=== PATIENT | female | born 1985 | race Caucasian/White ===

== ENCOUNTER 2017-01-23 14:07 | Emergency (ER) | payer MEDICAID ==
--- NOTE | 2017-01-23 14:15 | EDPHY ---
H & P HPI/ROS: HPI CHIEF COMPLAINT: Sore throat, white spots. HISTORY OF PRESENT ILLNESS: This patient very pleasant 31-year-old female, denies any significant medical history she is allergic to penicillins, she presents emergency room with 1 day of mild sore throat and white spots on her tonsillar bed. Denies trouble swallowing. Denies fever, denies cough. No recent illness. Past Medical History: Denies significant medical history Past Surgical History: Denies significant surgical Social History: Denies daily use of drugs alcohol tobacco products. Family History: Noncontributory ROS REVIEW OF SYSTEMS: A comprehensive 10 point review of systems is otherwise negative aside from elements mentioned in the history of present illness. Exam Constitutional appears well nontoxic triage nursing summary reviewed, vital signs reviewed, awake/alert. Eyes normal conjunctivae and sclera, EOMI, PERRLA. HENT posterior pharynx: No significant erythema, tonsillar bed does not appear swollen, there are some white spots seen on the right tonsillar bed non seen left tonsillar bed. Uvula midline. No Vance's. No drooling. No trismus. moist mucus membranes, no epistaxis, neck supple/ no meningismus, no raccoon eyes. Respiratory clear to auscultation bilaterally, normal breath sounds, no respiratory distress, no wheezing. Cardiovascular rate normal, regular rhythm, no murmur, no edema, distal pulses normal. Gastrointestinal soft, non-tender, no rebound, no guarding, normal bowel sounds, no distension, no pulsatile mass. Genitourinary no CVA tenderness. Musculoskeletal no midline vertebral tenderness, full range of motion, no calf swelling, no tenderness of extremities, no meningismus, good pulses, neurovascularly intact. Skin pink, warm, & dry, no rash, skin atraumatic. Neurologic awake, alert and oriented x 3, AAOx3, moves all 4 extremities equally, motor intact, sensory intact, CN II-XII intact, normal cerebellar, normal vision, normal speech. Psychiatric normal mood/affect. Heme/Lymph/Immune no lymphadenopathy. Differential Diagnosis: Includes but is not limited to in a particular, tonsillar bed stones, viral pharyngitis, strep pharyngitis Medical Decision Making: Plan for this patient rapid strep test. Re-evaluation: Rapid strep is negative. Do feel this patient has tonsil stones. Recommend gargling warm salty water. Follow up with ENT. Source: Patient - Medical/Surgical History Other PMH: DEPRESSION AND ANXIETY - Social History Smoking Status: Never smoked Constitutional: Initial Vital Signs Temperature (C) 37 C 01/23/17 14:14 Heart Rate 108 H 01/23/17 14:14 Respiratory Rate 16 01/23/17 14:14 Blood Pressure 129/84 H 01/23/17 14:14 O2 Sat (%) 97 01/23/17 14:14 O2 Delivery Mode Room Air Allergies/Adverse Reactions: Penicillins Allergy (Severe, Verified 01/23/17 14:13) SWELLING Home Medications: Medication Instructions Recorded NK [No Known Home Meds] 01/23/17 Medical Decision Making - Data Points Laboratory Results: 01/23/17 01/23/17 Unknown 14:20 Group A Strep Screen NEGATIVE (NEGATIVE) Group A Strep DNA Pending Departure - Departure Disposition: Home, Routine, Self-Care Clinical Impression: Calculus, tonsil Condition: Good Instructions: Tonsillitis (ED) Additional Instructions: 1. Please gargal warm salt water. 2. Please follow up with ENT. Referrals: [facility],. [Primary Care Provider] - As per Instructions Janny Hutchinson MD [Medical Doctor] - As per Instructions
[2017-01-23 14:16] VITALS: BP 129/84; PULSE 108; RESP 16; TEMP 98.6; O2SAT 97
== END 2017-01-23 14:50 | disposition home or self-care (01) ==
LOC: CED 14:07
DX: J35.8 Other chronic diseases of tonsils and adenoids (principal)
CPT/HCPCS: 87880-PO

== ENCOUNTER 2017-02-06 14:07 | Emergency (ER) | payer MEDICAID ==
[2017-02-06 14:13] VITALS: BP 133/101; PULSE 62; RESP 16; TEMP 99.1; O2SAT 97
--- NOTE | 2017-02-06 14:28 | EDPHY ---
H & P Stated Complaint: skin rash on sides of neck Time Seen by Provider: 02/06/17 14:18 HPI/ROS: CHIEF COMPLAINT: Rash HISTORY OF PRESENT ILLNESS: The patient is a 31-year-old female who comes to the emergency department complaining of rash to her neck and shoulders bilaterally. She states that she had wooden gauges in her ears that were becoming infected. She began using tea tree oil to treat the infection. Her ears have improved but over the last week she has developed irritation and itching to her neck bilaterally below her ear lobe and top of her shoulders. No fevers. No pain. REVIEW OF SYSTEMS: Constitutional: denies: chills, fever, recent illness, recent injury EENTM: denies: blurred vision, double vision, nose congestion Respiratory: denies: cough, shortness of breath Cardiac: denies: chest pain, irregular heart rate, lightheadedness, palpitations Gastrointestinal/Abdominal: denies: abdominal pain, diarrhea, nausea, vomiting, blood streaked stools Genitourinary: denies: dysuria, frequency, hematuria, pain Musculoskeletal: denies: joint pain, muscle pain Skin: See HPI Neurological: denies: headache, numbness, paresthesia, tingling, dizziness, weakness Hematologic/Lymphatic: denies: blood clots, easy bleeding, easy bruising Immunologic/allergic: denies: HIV/AIDS, transplant EXAM: GENERAL: Well-appearing, well-nourished and in no acute distress. HEAD: Atraumatic, normocephalic. EYES: Pupils equal round and reactive to light, extraocular movements intact, sclera anicteric, conjunctiva are normal. ENT: TMs normal, nares patent, oropharynx clear without exudates. Moist mucous membranes. NECK: Normal range of motion, supple without lymphadenopathy or JVD. LUNGS: Breath sounds clear to auscultation bilaterally and equal. No wheezes rales or rhonchi. HEART: Regular rate and rhythm without murmurs, rubs or gallops. ABDOMEN: Soft, nontender, normoactive bowel sounds. No guarding, no rebound. No masses appreciated. BACK: No CVA tenderness, no spinal tenderness, step-offs or deformities EXTREMITIES: Normal range of motion, no pitting or edema. No clubbing or cyanosis. NEUROLOGICAL: Cranial nerves II through XII grossly intact. Normal speech, normal gait. 5/5 strength, normal movement in all extremities, normal sensation PSYCH: Normal mood, normal affect. SKIN: Contiguous erythematous burn type rash to lateral neck and top of shoulders bilaterally. No urticaria. No blanching. No weeping. Source: Patient Exam Limitations: No limitations - Personal History LMP (Females 10-55): Extended Cycle BCP/Inj Current Tetanus/Diphtheria Vaccine: Yes - Medical/Surgical History Hx Asthma: No Hx Chronic Respiratory Disease: No Hx Diabetes: No Hx Cardiac Disease: No Hx Renal Disease: No Hx Cirrhosis: No Hx Alcoholism: No Other PMH: DEPRESSION AND ANXIETY - Family History Significant Family History: No pertinent family hx - Social History Alcohol Use: Sober Drug Use: None Constitutional: Initial Vital Signs Temperature (C) 37.3 C 02/06/17 14:10 Heart Rate 62 02/06/17 14:10 Respiratory Rate 16 02/06/17 14:10 Blood Pressure 133/101 H 02/06/17 14:10 O2 Sat (%) 97 02/06/17 14:10 O2 Delivery Mode Room Air Allergies/Adverse Reactions: Penicillins Allergy (Severe, Verified 02/06/17 14:13) SWELLING Home Medications: Medication Instructions Recorded Triamcinolone 0.025% 1 mahnaz TP TID #1 crtube 02/06/17 [Triamcinolone 0.025% cream (*)] Medical Decision Making ED Course/Re-evaluation: The patient has what appears to be a contact dermatitis to her eye skin bilaterally. I will start her on a steroid cream. I do not think that this represents an allergic reaction. She will follow up with her [facility] doctor [facility]. Also discussed indications for returning here. Differential Diagnosis: Partial list of the Differential diagnosis considered include but were not limited to; contact dermatitis, allergic reaction, urticaria and although unlikely based on the history and physical exam, I also considered burn, cellulitis, abscess. I discussed these differential diagnoses and the plan with the patient as well as the usual and expected course. The patient understands that the diagnosis is provisional and that in medicine we are not always correct and that further workup is often warranted. Usual and customary warnings were given. All of the patient's questions were answered. The patient was instructed to return to the emergency department should the symptoms at all worsen or return, otherwise to followup with the physician as we discussed. Departure - Departure Disposition: Home, Routine, Self-Care Clinical Impression: Acute dermatitis Condition: Good Instructions: Dermatitis (ED) Referrals: [facility],. [Primary Care Provider] - 2-3 days without fail Prescriptions: Triamcinolone 0.025% [Triamcinolone 0.025% cream (*)] 1 mahnaz TP TID #1 crtube
== END 2017-02-06 14:32 | disposition home or self-care (01) ==
LOC: CED 14:07
DX: L30.9 Dermatitis, unspecified (principal)

== ENCOUNTER 2017-03-16 11:59 | Emergency (ER) | payer MEDICAID ==
--- NOTE | 2017-03-16 12:05 | EDPHY ---
H & P - Medical/Surgical History Hx Asthma: No Hx Chronic Respiratory Disease: No Hx Diabetes: No Hx Cardiac Disease: No Hx Renal Disease: No Hx Cirrhosis: No Hx Alcoholism: No Other PMH: DEPRESSION AND ANXIETY - Social History Smoking Status: Never smoked Constitutional: Initial Vital Signs Temperature (C) 36.8 C 03/16/17 12:09 Heart Rate 78 03/16/17 12:09 Respiratory Rate 18 03/16/17 12:09 Blood Pressure 158/96 H 03/16/17 12:09 O2 Sat (%) 95 03/16/17 12:09 O2 Delivery Mode Room Air Allergies/Adverse Reactions: Penicillins Allergy (Severe, Verified 02/06/17 14:13) SWELLING Home Medications: Medication Instructions Recorded Triamcinolone 0.025% 1 mahnaz TP TID #1 crtube 02/06/17 [Triamcinolone 0.025% cream (*)] Medical Decision Making ED Course/Re-evaluation: CHIEF COMPLAINT: Mass on left gluteus HISTORY OF PRESENT ILLNESS: The patient is a 32 y/o female who complains of a a mass on her left gluteus for 2.5 weeks. She notes she had hemorrhoids several weeks ago and was using her boyfriends hemorrhoid cream. When she stopped using that cream she noticed her current symptoms. She was seen in an urgent care 2 weeks ago, where she was diagnosed with hemorrhoids. However, the cream she received has not improved her symptoms. Denies constipation, diarrhea, fever, urinary complaints, anticoagulant use, or other pertinent symptoms. REVIEW OF SYSTEMS: A 10 point review of systems was performed and is negative with the exception of the elements mentioned in the history of present illness. PHYSICAL EXAM: HR, BP, O2 Sat, RR. Temp noted General Appearance: Alert, well hydrated, appropriate, and non-toxic appearing. Head: Atraumatic without scalp tenderness or obvious injury Eyes: Pupils equal, round, reactive to light and accommodation, EOMI, no trauma , no injection. Ears: Clear bilaterally, no perforation, normal landmarks Nose: Atraumatic, no rhinorrhea, clear. Throat: Mucus membranes moist. Neck: Supple, non-tender, no lymphadenopathy. Respiratory: No retractions, no distress, no wheezes, and no accessory muscle use. Lungs are clear to auscultation bilaterally. Cardiovascular: Regular rate and rhythm, no murmurs, rubs, or gallops. Good capillary refill all extremities. Gastrointestinal: Abdomen is soft, non-tender, non-distended, no masses, no rebound, no guarding, no peritoneal signs. Rectal: Left golf ball sized mass. No hemorrhoids visible. Musculoskeletal: Normal active ROM of all extremities, atraumatic. Neurological: Alert, appropriate, and interactive. Non-focal neuro. Skin:No rashes, good turgor, no nodules on palpation. PAST MEDICAL HISTORY: Hemorrhoids, anxiety, depression PAST SURGICAL HISTORY: Denies SOCIAL HISTORY: Single, lives in [place], non-smoker DIFFERENTIAL DIAGNOSIS: The differential diagnosis for the patient's perirectal lesion included but was not limited to internal hemorrhoid, external hemorrhoid, perirectal STI, perirectal abscess, cutaneous abscess, Crohn's disease. MEDICAL DECISION MAKING: The patient is a 32 y/o female who presents with a golf ball sized left mass, which is consistent with a perirectal abscess. Plan on consulting with the general surgeon for incision and drainage. IV antibiotics administered in advance of her I&D. 1258: Consulted with Dr. Antonio Hodgson, general surgeon, regarding I&D. He accepts this patient for outpatient surgery. Reassessed patient and discussed her surgery with Dr. Hodgson. Patient is comfortable with this plan. - Data Points Laboratory Results: Laboratory Results 03/16/17 12:40 03/16/17 12:40 03/16/17 03/16/17 03/16/17 12:40 12:40 12:40 WBC 7.50 10^3/uL 10^3/uL (3.80-9.50) RBC 5.10 10^6/uL 10^6/uL (4.18-5.33) Hgb 14.3 g/dL g/dL (12.6-16.3) Hct 42.2 % % (38.0-47.0) MCV 82.7 fL fL (81.5-99.8) MCH 28.0 pg pg (27.9-34.1) MCHC 33.9 g/dL g/dL (32.4-36.7) RDW 12.3 % % (11.5-15.2) Plt Count 281 10^3/uL 10^3/uL (150-400) MPV 8.9 fL fL (8.7-11.7) Neut % (Auto) 59.0 % % (39.3-74.2) Lymph % (Auto) 32.1 % % (15.0-45.0) [place] % (Auto) 6.3 % % (4.5-13.0) Eos % (Auto) 1.6 % % (0.6-7.6) Baso % (Auto) 0.7 % % (0.3-1.7) Nucleat RBC Rel Count 0.0 % % (0.0-0.2) Absolute Neuts (auto) 4.43 10^3/uL 10^3/uL (1.70-6.50) Absolute Lymphs (auto) 2.41 10^3/uL 10^3/uL (1.00-3.00) Absolute Monos (auto) 0.47 10^3/uL 10^3/uL (0.30-0.80) Absolute Eos (auto) 0.12 10^3/uL 10^3/uL (0.03-0.40) Absolute Basos (auto) 0.05 10^3/uL 10^3/uL (0.02-0.10) Absolute Nucleated RBC 0.00 10^3/uL 10^3/uL (0-0.01) Immature Gran % 0.3 % % (0.0-1.1) Immature Gran # 0.02 10^3/uL 10^3/uL (0.00-0.10) Sodium 144 mEq/L mEq/L (134-144) Potassium 4.4 mEq/L mEq/L (3.5-5.2) Chloride 106 mEq/L mEq/L (97-110) Carbon Dioxide 22 mEq/l mEq/l (22-31) Anion Gap 16 mEq/L mEq/L (8-16) BUN 6 mg/dL L mg/dL (7-23) Creatinine 0.6 mg/dL mg/dL (0.6-1.0) Estimated GFR > 60 Glucose 88 mg/dL mg/dL (70-100) Calcium 9.8 mg/dL mg/dL (8.5-10.4) Beta HCG, Qual NEGATIVE Medications Given: Discontinued Medications Ertapenem 1 gm/ Sodium (Chloride) 100 mls @ 200 mls/hr IV EDNOW ONE PRN Reason: Protocol Stop: 03/16/17 13:01 Last Admin: 03/16/17 13:01 Dose: 100 mls Departure - Departure Disposition: Home, Routine, Self-Care Clinical Impression: Perirectal abscess Condition: Good Instructions: Abscess (ED), Rectal Abscess (ED) Additional Instructions: 1. Immediately go to Dr. Antonio Hodgson', general surgeon, office for drainage of your abscess Referrals: Antonio Hodgson MD [Medical Doctor] - As per Instructions Report Scribed for: Je Calderón Report Scribed by: Malena Galindo Date of Report: 03/16/17 Time of Report: 12:05
[2017-03-16 12:13] VITALS: RESP 18; TEMP 98.2
[2017-03-16] MEDS ORDERED: ERTAPENEM 1 GM in NS 100 ML IV ONE (12:32)
[2017-03-16 12:56] LABS: % IMMATURE GRANULYOCYTES 0.3 % (0.0-1.1); ABSOLUTE IMMATURE GRANULOCYTES 0.02 10^3/uL (0.00-0.10); ADD DIFF? NO; ADD MORPH? NO; ADD SCAN? NO; ATYPICAL LYMPHOCYTE FLAG 0 (0-99); FRAGMENT RBC FLAG 0 (0-99); HEMATOCRIT 42.2 % (38.0-47.0); HEMOGLOBIN 14.3 g/dL (12.6-16.3); LEFT SHIFT FLG 0 (0-99); LIPEMIA HEMOLYSIS FLAG 90 (0-99); MEAN CELL HEMOGLOBIN CONCENTR. 33.9 g/dL (32.4-36.7); MEAN CELL VOLUME 82.7 fL (81.5-99.8); MEAN PLATELET VOLUME 8.9 fL (8.7-11.7); PLATELET CLUMPS FLAG 0 (0-99); PLATELET COUNT 281 10^3/uL (150-400); RED CELL DISTRIBUTION WIDTH 12.3 % (11.5-15.2)
[2017-03-16 13:06] LABS: ANION GAP 16 mEq/L (8-16); CALCIUM 9.8 mg/dL (8.5-10.4); CARBON DIOXIDE 22 mEq/l (22-31); CHLORIDE 106 mEq/L (97-110); CREATININE 0.6 mg/dL (0.6-1.0); GLOMERULAR FILTRATION RATE > 60; GLUCOSE 88 mg/dL (70-100); POTASSIUM 4.4 mEq/L (3.5-5.2); SODIUM 144 mEq/L (134-144)
[2017-03-16 13:37] VITALS: BP 138/100; PULSE 80; O2SAT 98
== END 2017-03-16 13:36 | disposition home or self-care (01) ==
LOC: CED 11:59
DX: K61.1 Rectal abscess (principal)
CPT/HCPCS: 80048-PO; 84703-PO; 85025-PO; 96365; J1335